=== PATIENT | female | born 1980 | race African-American/Black ===

== ENCOUNTER 2017-09-03 14:44 | Emergency (ER) | payer OTHER ==
[~2017-09-03] VITALS: Ht 157.5 cm; Wt 94.8 kg
[2017-09-03] MEDS ORDERED: PEN-VEE K,VEET500 MG PO (16:07)
[2017-09-03] MEDS ORDERED: INDOCIN50 MG PO (16:07)
[2017-09-03 16:24] VITALS: BP 179/94
== END 2017-09-03 16:25 | disposition home or self-care (01) ==
LOC: EME 14:44
DX: K02.9 Dental caries, unspecified (principal)
CPT/HCPCS: 99281; 99284